=== PATIENT | female | born 1990 | race American Indian/Alaskan Native ===

== ENCOUNTER 2016-05-31 10:38 | Emergency (ER) | payer MEDICAID ==
[2016-05-31 11:50] LABS: Basophils % (Auto) 0.6 % (0.0-1.8); Eosinophils % (Auto) 0.4 % (0.0-4.3); Hematocrit 36.5 % (30.3-42.9); Hemoglobin 11.7 gm/dl (10.1-14.3); Mean Corpuscular HGB Conc 32 % (30-34); Mean Corpuscular Volume 79 fl (79-97); Platelet Count 274 K/mm3 (140-440); Red Blood Count 4.65 M/mm3 (3.65-5.03); Red Cell Distribution Width 16.1 % (13.2-15.2); White Blood Count 8.4 K/mm3 (4.5-11.0)
[2016-05-31 11:51] LABS: Mean Corpuscular Hemoglobin 25 pg (28-32)
[2016-05-31 11:57] LABS: Anion Gap 19 mmol/L; Blood Urea Nitrogen 6 mg/dL (7-17); Calcium 9.6 mg/dL (8.4-10.2); Carbon Dioxide 23 mmol/L (22-30); Glucose 85 mg/dL (65-100); Potassium 3.5 mmol/L (3.6-5.0); Sodium 137 mmol/L (137-145)
[2016-05-31 12:06] LABS: Bacteria,Urine 2+ /HPF (Negative); Bilirubin,Urine SM (Negative); Blood,Urine NEG (Negative); Ketones,Urine 20 mg/dL (Negative); Leukocyte Esterase,Urine MOD (Negative); Mucus,Urine 3+ /HPF; Nitrite,Urine NEG (Negative)
[2016-05-31 12:08] LABS: WBC,Urine > 182.0 /HPF (0.0-6.0)
[2016-05-31] MEDS ORDERED: ROCEPHIN/NS 1 GM/50 ML 1 GM/50 ML BAG IV ONE (13:16)
[2016-05-31] MEDS ORDERED: NACL 0.9% 1000 ML 1,000 ML IV ONE ×2 (13:16→18:21)
[2016-05-31] MEDS ORDERED: ZOFRAN IV ONE ×2 (13:43→18:21)
--- NOTE | 2016-05-31 13:43 | Emergency Department Report ---
HPI - General Chief Complaint: Abdominal Pain Time Seen by Provider: 05/31/16 13:15 - HPI HPI: This is a 25-year-old Afro[place] female who is about 14 weeks with complaint of a 2 month history of nausea and vomiting and a 24-hour history of abdominal cramping. She denies any vaginal bleeding, dysuria, discharge. Patient says she is unable to keep down food, liquids. Her WAREHOUSE ATTENDANT, Dr. Albina Padilla, wrote her for some type of suppository but that was not working and made her too sedated. She recently was given a prescription for Zofran but they were not the ODT and the patient says she is unable to swallow pills on a regular basis. She denies any fever, back pain. No recent travel or sick contacts at home. She denies any past medical history. ED Past Medical Hx - Medications Home Medications: Home Medications Medication Instructions Recorded Confirmed Last Taken Type Nitrofurantoin (Nf) [Furadantin 20 ml PO BID #280 ml 05/31/16 Unknown Rx ORAL LIQ] ED Review of Systems ROS: Stated complaint: 14WKS/CRAMPING/DEHYDRATED/FATIGUE Other details as noted in HPI Comment: All other systems reviewed and negative Constitutional: denies: chills, fever Eyes: denies: eye pain, eye discharge, vision change ENT: denies: ear pain, throat pain Cardiovascular: denies: chest pain, palpitations Gastrointestinal: abdominal pain, nausea, vomiting Genitourinary: denies: urgency, dysuria, discharge Musculoskeletal: denies: back pain, joint swelling, arthralgia Skin: denies: rash, lesions Neurological: denies: headache, weakness, paresthesias Physical Exam - Physical Exam Vital Signs: Vital Signs 05/31/16 11:10 Temperature 98 F Pulse Rate 97 H Respiratory 18 Rate Blood Pressure 116/83 O2 Sat by Pulse 99 Oximetry Physical Exam: GENERAL: The patient is well-developed well-nourished. HEENT: Normocephalic. Atraumatic. Extraocular motions are intact. Patient has moist mucous membranes. Pupils equal reactive to light bilaterally. NECK: Supple. Trachea is midline. CHEST/LUNGS: Clear to auscultation. There is no respiratory distress noted. HEART/CARDIOVASCULAR: Regular. There is no tachycardia. There is no gallop rub or murmur. ABDOMEN: Abdomen is soft, nontender. Patient has normal bowel sounds. There is no abdominal distention. SKIN: There is no rash. There is no edema. There is no diaphoresis. NEURO: The patient is awake, alert, and oriented. The patient is cooperative. The patient has no focal neurologic deficits. The patient has normal speech. MUSCULOSKELETAL: There is no tenderness or deformity. There is no limitation range of motion. There is no evidence of acute injury. ED Course Vital Signs 05/31/16 11:10 Temperature 98 F Pulse Rate 97 H Respiratory 18 Rate Blood Pressure 116/83 O2 Sat by Pulse 99 Oximetry ED Medical Decision Making - Lab Data Result diagrams: 05/31/16 11:28 05/31/16 11:28 - Radiology Data Radiology results: report reviewed Transvaginal/ ultrasound shows a live intrauterine at about 15 weeks. - Medical Decision Making 25-year-old female presents to the emergency department with complaint of some abdominal cramping and a more chronic nausea and vomiting. Patient's labs are mostly unremarkable except for the fact that she does have a significant urinary tract infection. She was given some Rocephin through the IV for this. She will go home on a 1 week course of Macrobid. Patient was given IV fluid and Zofran for her nausea and vomiting. After 2 L of fluid the patient was given an oral challenge with some crackers and water and was able to keep it down without any further nausea and vomiting. Patient has an WAREHOUSE ATTENDANT for follow- up. She will be discharged home but understands to return to the emergency department with any intractable vomiting, intractable fever, any worsening of her conditions or any acute distress. One point the patient appeared to have some hypotension but I do not believe that it is accurate. I witnessed the machine myself having trouble checking blood pressure and continually cycling. Just after this we checked manually and the patient had a normal blood pressure with a systolic rate of 100 and patient has no complaints of any lightheadedness or dizziness. - Differential Diagnosis hyperemesis gravidarum, food poisoning, viral syndrome Critical Care Time: No Critical care attestation.: If time is entered above; I have spent that time in minutes in the direct care of this critically ill patient, excluding procedure time. ED Disposition Clinical Impression: Hyperemesis gravidarum UTI (urinary tract infection) Qualifiers: Urinary tract infection type: acute cystitis Hematuria presence: without hematuria Qualified Code(s): N30.00 - Acute cystitis without hematuria Disposition: DISCHARGED TO HOME OR SELFCARE Is pt being admited?: No Condition: Stable Instructions: (ED), Hyperemesis Gravidarum (ED), Abdominal Pain (ED) Additional Instructions: Please follow-up with your WAREHOUSE ATTENDANT in the next few days. Return to the emergency department with any worsening of her symptoms or any acute distress Prescriptions: Nitrofurantoin (Nf) [Furadantin ORAL LIQ] 20 ml PO BID #280 ml Referrals: ALBINA PADILLA DR [Other] - 3-5 Days Time of Disposition: 19:26
--- NOTE | 2016-05-31 14:21 | Ultrasound Report ---
Gestation: Walker Position: Transverse Amniotic Fluid: nl AJAY = cm Placenta: Fundal Placental Grade: 0 Heart Rate: 155 BPM Cervical length: 1.2 cm (Normal > 3 cm) the cervix is markedly shortened at 1.2 cm, and funneling is present. x It is too early for a anatomical survey BPD: 2.9 cm = 15 w 1 d HC: 11.1 cm = 15 w 3 d AC: 9.2 cm = 15 w 3 d FL: 1.4 cm = 14 w d HC/AC Ratio: 1.2 Cephalic Index: 79.8 Estimated Weight: grams LMP: 02/18/16 Clinical age = 14 w 5 d EDC: 11/24/16 US Gest. Age = 15 w 0 d EDC: 11/22/16
[2016-05-31] MEDS ORDERED: ZOFRAN ONE (17:31)
[2016-05-31] MEDS ORDERED: NACL 0.9% 1000 ML 1,000 ML ONE (17:31)
[2016-05-31 19:23] VITALS: BP 100/60
== END 2016-05-31 20:17 | disposition home or self-care (01) ==
LOC: ED 10:38
DX: O21.0 Mild hyperemesis gravidarum (principal); O23.40 Unspecified infection of urinary tract in pregnancy, unspecified trimester; Z3A.14 14 weeks gestation of pregnancy
CPT/HCPCS: 36415; 76805; 80048; 81001; 84702; 85025; 96361; 96365; 96375; 96376; 99284; J0696; J2405; J7030

== ENCOUNTER 2016-10-09 12:29 | Emergency (ER) | payer MEDICAID ==
--- NOTE | 2016-10-09 13:04 | Emergency Department Report ---
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 pt states she had this pain while she was in the hospital last week. PT states she had vaginal delivery on - Review of Systems: +sob + chest pain + abd pain - ble edema - Exam Physical Exam: PT is alert and appropriate abd soft, + epigastric ttp MSE screening note: Focused history and physical exam performed. Due to findings the following was ordered: ekg, lab, xr ED Disposition for MSE Condition: Stable
[2016-10-09] MEDS ORDERED: NACL 0.9% 1000 ML 1,000 ML IV ONE (13:23)
[2016-10-09] MEDS ORDERED: MORPHINE IV ONE (13:23)
[2016-10-09] MEDS ORDERED: TORADOL IV ONE (13:23)
[2016-10-09] MEDS ORDERED: ZOFRAN IV ONE (13:23)
--- NOTE | 2016-10-09 13:32 | XRay Report ---
Chest 2 views: History: Chest pain. Findings: Normal cardiomediastinal silhouette. Trachea is midline. No consolidation, pneumothorax or pleural effusion. Impression: No acute cardiopulmonary findings.
--- NOTE | 2016-10-09 14:01 | Emergency Department Report ---
ED Abdominal Pain HPI - General Chief Complaint: Abdominal Pain Stated Complaint: STOMACH CHEST AND BACK PAIN Time Seen by Provider: 10/09/16 12:58 Source: patient Mode of arrival: Ambulatory Limitations: No Limitations - History of Present Illness MD Complaint: abdominal pain, flank pain -: Gradual Location: diffuse Radiation: none Migration to: no migration Severity: moderate Severity scale (0 -10): 6 Quality: stabbing, sharp Consistency: constant Improves With: nothing Worsens With: nothing Associated Symptoms: denies: nausea, vomiting, diarrhea, fever, chills, constipation, dysuria, hematemesis, hematochezia, melena, hematuria, anorexia, syncope - Related Data Home Medications Medication Instructions Recorded Confirmed Last Taken Vit-Fe Fumar-FA [ 1 tab PO QDAY 10/09/16 10/09/16 10/09/16 Vitamin] Previous Rx's Medication Instructions Recorded Last Taken Type Ibuprofen [Motrin 800 MG tab] 800 mg PO BID PRN #20 tablet 10/09/16 Unknown Rx Allergies Allergy/AdvReac Type Severity Reaction Status Date / Time No Known Allergies Allergy Unverified 05/31/16 11:10 ED Review of Systems ROS: Stated complaint: STOMACH CHEST AND BACK PAIN Other details as noted in HPI Comment: All other systems reviewed and negative ED Past Medical Hx - Past Medical History Previous Medical History?: Yes Additional medical history: vaginal delivery 10-05-2016 - Surgical History Past Surgical History?: No - Social History Smoking Status: Never Smoker Substance Use Type: Non Opiate Pain, Prescribed - Medications Home Medications: Home Medications Medication Instructions Recorded Confirmed Last Taken Type Ibuprofen [Motrin 800 MG tab] 800 mg PO BID PRN #20 tablet 10/09/16 Unknown Rx Vit-Fe Fumar-FA [ 1 tab PO QDAY 10/09/16 10/09/16 10/09/16 History Vitamin] ED Physical Exam - General Limitations: No Limitations General appearance: alert, in no apparent distress - Head Head exam: Present: atraumatic, normocephalic - Eye Eye exam: Present: normal appearance - ENT ENT exam: Present: mucous membranes moist - Neck Neck exam: Present: normal inspection - Respiratory Respiratory exam: Present: normal lung sounds bilaterally. Absent: respiratory distress - Cardiovascular Cardiovascular Exam: Present: regular rate, normal rhythm. Absent: systolic murmur, diastolic murmur, rubs, gallop - GI/Abdominal GI/Abdominal exam: Present: soft, normal bowel sounds - Extremities Exam Extremities exam: Present: normal inspection - Back Exam Back exam: Present: normal inspection - Neurological Exam Neurological exam: Present: alert, oriented X3 - Psychiatric Psychiatric exam: Present: normal affect, normal mood - Skin Skin exam: Present: warm, dry, intact, normal color. Absent: rash ED Course Vital Signs 10/09/16 12:57 Temperature 98.3 F Pulse Rate 100 H Respiratory 22 Rate Blood Pressure 123/79 O2 Sat by Pulse 98 Oximetry ED Medical Decision Making - Lab Data Result diagrams: 10/09/16 13:44 10/09/16 13:44 - Radiology Data Radiology results: report reviewed, image reviewed - Medical Decision Making patient doing well , labs negative , ct chest negative for PE, i was going to repeat US of GB but refused cause she just had one done, he is feeling better and doing well. Critical care attestation.: If time is entered above; I have spent that time in minutes in the direct care of this critically ill patient, excluding procedure time. ED Disposition Clinical Impression: Chest pain, Abdominal pain Disposition: DC-01 TO HOME OR SELFCARE Is pt being admited?: No Does the pt Need Aspirin: No Condition: Good Instructions: Abdominal Pain (ED), Chest Pain (ED) Prescriptions: Ibuprofen [Motrin 800 MG tab] 800 mg PO BID PRN #20 tablet PRN Reason: Pain Referrals: PRIMARY CARE, [Primary Care Provider] - 3-5 Days Time of Disposition: 16:47
[2016-10-09 14:14] LABS: Basophils % (Auto) 0.3 % (0.0-1.8); Eosinophils % (Auto) 2.6 % (0.0-4.3); Hematocrit 29.1 % (30.3-42.9); Hemoglobin 9.3 gm/dl (10.1-14.3); Mean Corpuscular HGB Conc 32 % (30-34); Mean Corpuscular Volume 76 fl (79-97); Platelet Count 264 K/mm3 (140-440); Red Blood Count 3.81 M/mm3 (3.65-5.03); White Blood Count 11.7 K/mm3 (4.5-11.0)
[2016-10-09 14:16] LABS: INR 1.01 (0.87-1.13)
[2016-10-09 14:17] LABS: Partial Thromboplastin Time 26.5 Sec. (24.2-36.6)
[2016-10-09 14:21] LABS: Mean Corpuscular Hemoglobin 24 pg (28-32)
[2016-10-09 14:23] LABS: Bilirubin,Urine NEG (Negative); Blood,Urine MOD (Negative); Ketones,Urine NEG (Negative); Leukocyte Esterase,Urine MOD (Negative); Mucus,Urine FEW /HPF; Nitrite,Urine NEG (Negative); Protein,Urine <15 mg/dL mg/dL (Negative)
[2016-10-09 14:24] LABS: Alanine Aminotransferase 35 units/L (7-56); Albumin 3.2 g/dL (3.9-5); Albumin/Globulin Ratio 0.8 %; Alkaline Phosphatase 216 units/L (35-129); Anion Gap 19 mmol/L; BUN/Creatinine Ratio 23.33; Blood Urea Nitrogen 14 mg/dL (7-17); Calcium 8.6 mg/dL (8.4-10.2); Carbon Dioxide 23 mmol/L (22-30); Glucose 88 mg/dL (65-100); Lipase 39 units/L (13-60); Potassium 3.5 mmol/L (3.6-5.0); Sodium 140 mmol/L (137-145); Total Protein 7.1 g/dL (6.3-8.2)
[2016-10-09] MEDS ORDERED: NACL ONE (15:40)
--- NOTE | 2016-10-09 16:18 | Cat Scan Report ---
CT angiography of the chest with 3-D reconstructed images. History: Chest pain. Findings: There is no evidence of pulmonary emboli. There are subtle bilateral groundglass infiltrates involving all lobes. There no planar nodules or masses. No pleural fluid is seen. There is no mediastinal or hilar adenopathy. Impression: 1. No evidence of pulmonary emboli. 2. Subtle bilateral groundglass infiltrates are nonspecific and could be related to an acute inflammatory process, edema, a variety of infectious processes including opportunistic infections, hypersensitivity pneumonia, drug toxicity and numerous other conditions.
[2016-10-09 17:23] VITALS: BP 118/70
== END 2016-10-09 17:24 | disposition home or self-care (01) ==
LOC: ED 12:29
DX: R10.84 Generalized abdominal pain (principal); R07.9 Chest pain, unspecified
CPT/HCPCS: 36415; 71020; 71275; 80053; 81001; 83690; 83735; 83880; 84484; 85025; 85379; 85610; 85730; 93005; 93010; 96361; 96374; 96375; 99284; J1885; J2270; J2405; J7030; Q9967